=== PATIENT | female | born 1990 | race Caucasian/White ===

== ENCOUNTER 2020-07-19 13:34 | Inpatient (IN) | payer OTHER ==
[2020-07-19 16:25] VITALS: BMI 35.9
[2020-07-19] MEDS ORDERED: NICOTINE POLACRILEX 2 MG GUM BUC PRN (16:36)
[2020-07-19] MEDS ORDERED: ONDANSETRON *ODT* 4 MG TABLET SL PRN (16:36)
[2020-07-19] MEDS ORDERED: BISMUTH SUBSALICYLATE 524 MG/30 ML UD PO PRN (16:36)
[2020-07-19] MEDS ORDERED: MENTHOL/PHENOL 1 EACH UD MM PRN (16:36)
[2020-07-19] MEDS ORDERED: MAGNESIUM CITRATE 300 ML BOTTLE PO PRN (16:36)
[2020-07-19] MEDS ORDERED: METHADONE HCL 10 MG TABLET (FOR DETOX USE ONLY) PO ONE (16:36)
[2020-07-19] MEDS ORDERED: IBUPROFEN 400 MG TABLET (FP) PO PRN (16:36)
[2020-07-19] MEDS ORDERED: MAGNESIUM HYDROX 2400MG/30ML ORAL SUSPENSION 30 ML CUP PO PRN (16:36)
[2020-07-19] MEDS ORDERED: ACETAMINOPHEN 325 MG TABLET (FP) PO PRN ×2 (16:36)
[2020-07-19] MEDS ORDERED: MAG HYDROX/AL HYDROX/SIMETH 30 ML UNIT-DOSE CUP PO PRN (16:36)
[2020-07-19] MEDS: hydrOXYzine PAMOATE 25 MG CAPSULE (FP) PO SCH ×2 (18:05→22:09)
[2020-07-19] MEDS: NICOTINE 21 MG/24 HOURS TOPICAL PATCH TD SCH (18:05)
[2020-07-19] MEDS: diazePAM 5 MG TABLET PO PRN (18:05)
[2020-07-19] MEDS: METHOCARBAMOL 500 MG TABLET PO PRN (18:05)
[2020-07-19] MEDS: THIAMINE HCL 100 MG TABLET (FP) PO SCH (22:09)
[2020-07-19] MEDS: MELATONIN 5 MG TABLETS PO SCH (22:09)
[2020-07-19] MEDS: diazePAM 5 MG TABLET PO SCH (22:09)
[2020-07-20] MEDS: hydrOXYzine PAMOATE 25 MG CAPSULE (FP) PO SCH ×2 (05:48→10:19)
[2020-07-20] MEDS: diazePAM 5 MG TABLET PO SCH ×4 (05:48→22:19)
[2020-07-20] MEDS ORDERED: METHADONE HCL 10 MG TABLET (FOR DETOX USE ONLY) ONE (08:35)
[2020-07-20] MEDS ORDERED: METHADONE HCL 5 MG TABLET (FOR DETOX USE ONLY) ONE (08:35)
[2020-07-20] MEDS ORDERED: METHADONE (DETOX) 20 MG, METHADONE (DETOX) 5 MG PO ONE (10:00)
[2020-07-20] MEDS: NICOTINE 21 MG/24 HOURS TOPICAL PATCH TD SCH (10:19)
[2020-07-20] MEDS: PRENATAL VITAMINS W/ FOLIC ACID TABLET (FP) PO SCH (10:20)
[2020-07-20 19:24] LABS: URINE APPEARANCE Error; URINE BILIRUBIN NEGATIVE (NEGATIVE); URINE COLOR YELLOW; URINE GLUCOSE (UA) NEGATIVE (NEGATIVE); URINE KETONE NEGATIVE (NEGATIVE); URINE LEUK ESTERASE NEGATIVE (NEGATIVE); URINE NITRITE NEGATIVE (NEGATIVE); URINE PROTEIN NEGATIVE (NEGATIVE)
[2020-07-20] MEDS: QUEtiapine FUMARATE 50 MG TABLET PO SCH (22:19)
[2020-07-20] MEDS: THIAMINE HCL 100 MG TABLET (FP) PO SCH (22:19)
[2020-07-20] MEDS: MELATONIN 5 MG TABLETS PO SCH (22:19)
[2020-07-20] MEDS: cloNIDine HCL 0.1 MG TABLET PO PRN (22:21)
[2020-07-20] MEDS: METHOCARBAMOL 500 MG TABLET PO PRN (22:21)
[2020-07-21] MEDS: diazePAM 5 MG TABLET PO SCH ×3 (05:43→22:03)
[2020-07-21] MEDS: METHOCARBAMOL 500 MG TABLET PO PRN (05:47)
[2020-07-21] MEDS ORDERED: METHADONE HCL 10 MG TABLET (FOR DETOX USE ONLY) PO ONE (10:00)
[2020-07-21] MEDS: PRENATAL VITAMINS W/ FOLIC ACID TABLET (FP) PO SCH (10:40)
[2020-07-21] MEDS: NICOTINE 21 MG/24 HOURS TOPICAL PATCH TD SCH (10:40)
[2020-07-21] MEDS: diazePAM 5 MG TABLET PO PRN ×2 (11:37→17:03)
[2020-07-21] MEDS: cloNIDine HCL 0.1 MG TABLET PO PRN ×2 (15:25→22:06)
[2020-07-21] MEDS: MELATONIN 5 MG TABLETS PO SCH (22:03)
[2020-07-21] MEDS: THIAMINE HCL 100 MG TABLET (FP) PO SCH (22:03)
[2020-07-21] MEDS: QUEtiapine FUMARATE 50 MG TABLET PO SCH (22:03)
[2020-07-22] MEDS ORDERED: diazePAM 5 MG TABLET PO SCH (06:00)
[2020-07-22] MEDS: METHOCARBAMOL 500 MG TABLET PO PRN (06:39)
[2020-07-22] MEDS ORDERED: METHADONE HCL 10 MG TABLET (FOR DETOX USE ONLY) ONE (08:30)
[2020-07-22] MEDS ORDERED: METHADONE HCL 5 MG TABLET (FOR DETOX USE ONLY) ONE (08:30)
[2020-07-22] MEDS: PRENATAL VITAMINS W/ FOLIC ACID TABLET (FP) PO SCH (09:35)
[2020-07-22] MEDS: NICOTINE 21 MG/24 HOURS TOPICAL PATCH TD SCH (09:36)
[2020-07-22] MEDS: diazePAM 5 MG TABLET PO PRN (09:38)
[2020-07-22] MEDS ORDERED: METHADONE (DETOX) 10 MG, METHADONE (DETOX) 5 MG PO ONE (10:00)
[2020-07-22 13:14] VITALS: BP 126/77; PULSE 100; TEMP 97.3
[2020-07-22] MEDS ORDERED: cloNIDine HCL 0.1 MG TABLET PO ONE (13:34)
[2020-07-22 17:31] LABS: BASO % 0.3 % (0-2.0); EOS % 0.6 % (0-4.5); HEMATOCRIT 38.8 % (32.4-45.2); HEMOGLOBIN 12.9 GM/dL (10.7-15.3); LYMPH % 12.7 % (8-40); MCH 31.4 pg (25.7-33.7); MCHC 33.3 g/dl (32.0-36.0); MEAN CELL VOLUME 94.1 fl (80-96); MONO % 16.8 % (3.8-10.2); NEUT % 69.6 % (42.8-82.8); PLATELET COUNT 280 K/MM3 (134-434); RBC 4.13 M/mm3 (3.60-5.2); RDW 13.2 % (11.6-15.6)
[2020-07-22 17:32] LABS: POTASSIUM 3.7 mmol/L (3.5-5.1)
[2020-07-22 17:37] LABS: CALCIUM 8.8 mg/dL (8.5-10.1)
[2020-07-22 17:38] LABS: ALBUMIN 3.4 g/dl (3.4-5.0); BLOOD UREA NITROGEN 8.8 mg/dL (7-18)
[2020-07-22 17:42] LABS: BILIRUBIN,TOTAL 0.7 mg/dL (0.2-1); CREATININE 0.9 mg/dL (0.55-1.3)
[2020-07-22 17:43] LABS: TOT PROT 7.4 g/dl (6.4-8.2)
[2020-07-22] MEDS ORDERED: cloNIDine HCL 0.1 MG TABLET PO SCH (22:00)
[2020-07-23] MEDS ORDERED: diazePAM 5 MG TABLET PO ONE (06:00)
[2020-07-23] MEDS ORDERED: METHADONE HCL 10 MG TABLET (FOR DETOX USE ONLY) PO ONE (10:00)
[2020-07-24] MEDS ORDERED: METHADONE HCL 5 MG TABLET (FOR DETOX USE ONLY) PO ONE (06:00)
== END 2020-07-22 16:40 | disposition left against medical advice (07) | DRG 770 ==
LOC: YASAS 13:34 → Y3N 16:34
PROVIDERS: ADMIT Allergy & Immunology; ATTEND Allergy & Immunology
PROC: HZ2ZZZZ Detoxification Services for Substance Abuse Treatment (ICD-10-PCS; principal; 2020-07-19)
DX: F11.23 Opioid dependence with withdrawal (principal); F13.230 Sedative, hypnotic or anxiolytic dependence with withdrawal, uncomplicated; F17.210 Nicotine dependence, cigarettes, uncomplicated; F41.9 Anxiety disorder, unspecified; F32.9 Major depressive disorder, single episode, unspecified; G47.00 Insomnia, unspecified; B18.2 Chronic viral hepatitis C; M54.5 Low back pain; Z90.81 Acquired absence of spleen
CPT/HCPCS: 36415; 80053; 81003; 81025; 85025; 86780; 93005; 93010; C9803; J0735; U0003